=== PATIENT | male | born 1965 | race Caucasian/White ===

== ENCOUNTER 2020-01-09 06:54 | Outpatient (CLI) | payer OTHER, SELFPAY ==
--- NOTE | ~2020-01-09 | XR_ITS ---
XR chest 2V DATE: 01/09/2020 07:12 INDICATION: Cough TECHNIQUE: PA and lateral views COMPARISON: None FINDINGS: Normal heart size. Aortic calcification. No hilar or mediastinal enlargement. No pulmonary infiltrate or consolidation, pleural effusion or pulmonary vascular congestion or pneumothorax. IMPRESSION: No active cardiopulmonary disease Reviewed, dictated and finalized at location A.
== END 2020-01-09 06:55 | disposition home or self-care (01) ==
PROVIDERS: PCP Family Medicine; Visit Provider Family Medicine
DX: R05 Cough (principal); R06.00 Dyspnea, unspecified
CPT/HCPCS: 71046

== ENCOUNTER 2022-05-01 05:38 | Emergency (ER) | payer OTHER, SELFPAY ==
--- NOTE | ~2022-05-01 | XR_ITS ---
EXAMINATION: XR knee LT 3V DATE: 05/01/2022 06:11 INDICATION: Left knee pain. TECHNIQUE: 3 views of left knee were obtained. COMPARISON: None. FINDINGS: Bone alignment is normal. No fracture. There is moderate osteoarthritis of medial compartme nt and mild osteoarthritis of lateral and patellofemoral compartments. There is a large knee joint ef fusion. There are loose bodies in the knee joint posteriorly. IMPRESSION: 1. Moderate left knee osteoarthritis. 2. Large knee joint effusion with loose bodies. Reviewed, dictated and finalized at location A.
[2022-05-01 05:42] VITALS: BP 157/109; PULSE 101; RESP 20; TEMP 36.9; O2SAT 98
--- NOTE | 2022-05-01 05:53 | ED.EXTPRO ---
HPI - Extremity Problem General Chief complaint: Extremity Problem,Nontraumatic Stated complaint: Left knee pain Time Seen by Provider: 05/01/22 05:43 Source: patient and RN notes reviewed Mode of arrival: ambulatory Limitations: no limitations History of Present Illness HPI Narrative: This is a 57 year old male with history of hypertension, Diabetes mellitus, gout who presents for evaluation of left knee pain. Patient states that he tweaked his left knee on Sunday. He states he only had mild pain on Sunday and sunday. He states last night head worsening throbbing pain. He took 600 mg ibuprofen last night at 11 pm, and he states he no longer has the throbbing pain. His pain is worse with movement , and it is non radiating. He denies fever, chills, numbness or tingling. He is concerned his pain my be from gout. He takes allopurinol. Related Data Allergies Allergy/AdvReac Type Severity Reaction Status Date / Time No Known Allergies Allergy Verified 05/01/22 05:50 Review of Systems Review of Systems: All systems reviewed & are unremarkable except as noted in HPI and below Constitutional: Constitutional: Denies chills, Denies fatigue and Denies fever(s) Cardiovascular: Cardiovascular: Denies chest pain Musculoskeletal: Musculoskeletal: Reports arthralgias and Reports joint swelling Integumentary/Breasts: Skin/Breast: Denies pruritus and Denies erythema PMFSH Past Medical History Medical History (Updated 05/01/22 @ 07:16 by Lynnette Becerra MD) Benign hypertension Gout Hyperlipidemia Morbid obesity CJ treated with BiPAP Type 2 diabetes mellitus with hyperglycemia Family History Family History Father Diabetes mellitus Family history of cardiovascular disease Acute myocardial infarction Family history of primary malignant neoplasm of liver Family history of coronary artery disease Mother Family history of multiple sclerosis Social History Social History Second hand tobacco smoke exposure: No Alcohol intake: former Substance use: never Substance use type: does not use Gender identity (if verbalized by the patient): Male Exam Const: General: no acute distress and alert Nutritional Appearance: obese Orientation/consciousness: patient oriented x3 Limitations: no limitations HENMT: Head: normal to inspection Resp: Effort & Inspection: normal respiratory effort Skin: General skin exam: normal color Rashes: no rashes Wounds: no wounds Neuro: General: patient oriented x3, moves all extremities and CN's II-XI intact bilaterally Extrem: Other: left knee with anterior tenderness, some suprapatellar fullness, no increased warmth or redness, NVI, pain with ROM Psych: Mental Status: mental status grossly normal Affect: normal affect Attitude: cooperative Course Reevaluation(s) Reevaluation #1: I discussed with patient that xray shows OA and knee effusion. I Discussed discharge plan of treatment with knee immobilization and NSAIDS. Date: 05/01/22 Time: 07:12 Vital Signs Vital signs: Vital Signs Temperature 98.5 F 05/01/22 05:42 Pulse Rate 101 H 05/01/22 05:42 Respiratory Rate 20 05/01/22 05:42 Blood Pressure 157/109 H 05/01/22 05:42 Pulse Oximetry 98 05/01/22 05:42 Oxygen Delivery Room Air 05/01/22 05:42 Temperature 98.5 F 05/01/22 05:42 Pulse Rate 94 05/01/22 06:30 Respiratory Rate 18 05/01/22 06:30 Blood Pressure 157/109 H 05/01/22 05:42 Pulse Oximetry 95 05/01/22 06:30 Oxygen Delivery Room Air 05/01/22 05:42 Discharge Plan Discharge Clinical Impression: Osteoarthritis of left knee, Effusion of knee joint, left Patient Disposition: Home, Self-Care Condition: Stable Instructions: Antibiotic Form, Knee Sprain (ED), Swollen Knee Joint (ED) Additional Instructions: Today you were evalua
[2022-05-01] MEDS: COLCHICINE 0.6 MG TABLET 1.2 MG PO (06:29)
[2022-05-01] MEDS: INDOMETHACIN 25 MG CAPSULE 50 MG PO (06:29)
[2022-05-01 06:30] VITALS: PULSE 94; RESP 18; O2SAT 95
--- NOTE | 2022-05-01 07:18 | PC.NURSE ---
Report given to JUVENAL DEAL
== END 2022-05-01 07:42 | disposition home or self-care (01) ==
PROVIDERS: Emergency Provider General Practice; PCP Family Medicine
DX: M25.462 Effusion, left knee (principal); M17.12 Unilateral primary osteoarthritis, left knee; I10 Essential (primary) hypertension; G47.30 Sleep apnea, unspecified; E11.9 Type 2 diabetes mellitus without complications
CPT/HCPCS: 73562; 99283; A9270